=== PATIENT | male | born 1985 | race Caucasian/White ===

== ENCOUNTER 2017-06-24 07:37 | Emergency (ER) | payer SELFPAY ==
[2017-06-24 07:43] VITALS: BP 130/81
[2017-06-24] MEDS ORDERED: DEXAMETHASONE SOD PHOS INJ 10 MG/1 ML VIAL IM ONE (08:48)
--- NOTE | 2017-06-24 08:50 | ER Document Report ---
ED General - General Chief Complaint: Sore Throat Stated Complaint: SORE THROAT Time Seen by Provider: 06/24/17 08:22 Mode of Arrival: Ambulatory Information source: Patient Notes: 31-year-old male presents with complaint sore throat. Patient notes symptoms abdominal for 2 days believes he has strep. He denies any fevers or chills admits to body aches intermittent cough. Patient is a smoker and knows productivity to the cough. Patient admits to pain with swallowing but no difficulty breathing TRAVEL OUTSIDE OF THE [place] IN LAST 30 DAYS: No - HPI Onset: Other - 2 day duration Onset/Duration: Persistent, Worse Quality of pain: Achy Severity: Mild Pain Level: 1 Associated symptoms: Body/muscle aches, Productive cough, Sore throat Exacerbated by: Food Relieved by: Denies Similar symptoms previously: Yes Recently seen / treated by doctor: No - Related Data Allergies/Adverse Reactions: No Known Allergies Allergy (Verified 01/25/14 11:30) Past Medical History - Social History Smoking Status: Current Every Day Smoker Cigarette use (# per day): Yes Chew tobacco use (# tins/day): No Smoking Education Provided: No Frequency of alcohol use: None Drug Abuse: None Family History: Reviewed & Not Pertinent Patient has suicidal ideation: No Patient has homicidal ideation: No Renal/ Medical History: Denies: Hx Peritoneal Dialysis - Immunizations Hx Diphtheria, Pertussis, Tetanus Vaccination: Yes Review of Systems - Review of Systems Notes: REVIEW OF SYSTEMS: CONSTITUTIONAL : Denies fever, chills, or sweats. Denies recent illness. EENT: Admits to sore throat CARDIOVASCULAR: Denies chest pain. Denies palpitations or racing or irregular heart beat. Denies ankle edema. RESPIRATORY: Admits to cough GASTROINTESTINAL: Denies abdominal pain or distention. Denies nausea, vomiting , or diarrhea. Denies blood in vomitus, stools, or per rectum. Denies black, tarry stools. Denies constipation. GENITOURINARY: Denies difficulty urinating, painful urination, burning, frequency, blood in urine, or discharge. MUSCULOSKELETAL: Admits to body aches SKIN: Denies rash, lesions or sores. HEMATOLOGIC : Denies easy bruising or bleeding. LYMPHATIC: Denies swollen, enlarged glands. NEUROLOGICAL: Denies confusion or altered mental status. Denies passing out or loss of consciousness. Denies dizziness or lightheadedness. Denies headache. Denies weakness or paralysis or loss of use of either side. Denies problems with gait or speech. Denies sensory loss, numbness, or tingling. Denies seizures. PSYCHIATRIC: Denies anxiety or stress. Denies depression, suicidal ideation, or homicidal ideation. ALL OTHER SYSTEMS REVIEWED AND NEGATIVE. Dictation was performed using [employer] 2000 voice recognition software PHYSICAL EXAMINATION: GENERAL: Well-appearing, well-nourished and in no acute distress. HEAD: Atraumatic, normocephalic. EYES: Pupils equal round and reactive to light, extraocular movements intact, sclera anicteric, conjunctiva are normal. ENT: Uvula midline airway patent bilateral tonsillar enlargement mild exudate on the right NECK: Normal range of motion, supple without lymphadenopathy LUNGS: Breath sounds clear to auscultation bilaterally and equal. No wheezes rales or rhonchi. HEART: Regular rate and rhythm without murmurs ABDOMEN: Soft, nontender, nondistended abdomen. No guarding, no rebound. No masses appreciated. Musculoskeletal: Normal range of motion, no pitting or edema. No cyanosis. NEUROLOGICAL: Cranial nerves grossly intact. Normal speech, normal gait. Normal sensory, motor exams PSYCH: Normal mood, normal affect. SKIN: Warm, Dry, normal turgor, no rashes or lesions noted. Physical Exam - Vital signs Vitals: Temp Pulse Resp BP Pulse Ox 98.3 F 100 20 130/81 H 100 06/24/17 07:42 06/24/17 07:42 06/24/17 07:42 06/24/17 07:42 06/24/17 07:42 Course - Re-evaluation Re-evalutation: 06/24/17 08:50 Patient has probable strep pharyngitis testing pending at this time, he has no signs of peritonsillar abscess 06/24/17 09:25 Patient is positive for strep will start on antibiotics and otherwise well- appearing no distress After performing a Medical Screening Examination, I estimate there is LOW risk for CENTRAL CORD SYNDROME, LUDWIGS ANGINA, PERITONSILLAR ABSCESS, RETROPHARYNGEAL ABSCESS, EPIDURAL MASS LESION, SEVERE SPINAL STENOSIS, ARTERIAL DISSECTION, MENINGITIS, or ACUTE CORONARY SYNDROME, thus I consider the discharge disposition reasonable. I have reevaluated this patient multiple times and no significant life threatening changes are noted. The patient and I have discussed the diagnosis and risks, and we agree with discharging home to follow-up on an outpatient basis with the understanding that symptoms and presentations can change. We also discussed returning to the Emergency Department immediately if new or worsening symptoms occur. We have discussed the symptoms which are most concerning (e.g., saddle anesthesia, urinary or bowel incontinence or retention, changing or worsening pain) that necessitate immediate return. - Vital Signs Vital signs: Temp Pulse Resp BP Pulse Ox 98.3 F 100 20 130/81 H 100 06/24/17 07:42 06/24/17 07:42 06/24/17 07:42 06/24/17 07:42 06/24/17 07:42 Discharge - Discharge Clinical Impression: Strep pharyngitis, Body aches Condition: Stable Disposition: HOME, SELF-CARE Instructions: Sore Throat ([facility]), Strep Throat ([facility]) Additional Instructions: Follow up with your physician tomorrow for further care or return to the ED IMMEDIATELY if symptoms worsen or new concerns occur. If you cannot afford to follow up with your primary care physician a list of low cost clinics have been provided at the end of your discharge papers as well. Prescriptions: Penicillin V Potassium [Penicillin Vk 500 mg Tablet] 500 mg PO Q6 #40 tablet
[2017-06-24 09:12] LABS: A TYPE INFLUENZA AG NEGATIVE (NEGATIVE); B INFLUENZA AG NEGATIVE (NEGATIVE)
== END 2017-06-24 09:46 | disposition home or self-care (01) ==
LOC: ER 07:37
DX: J02.0 Streptococcal pharyngitis (principal); M79.1 Myalgia; R05 Cough; F17.210 Nicotine dependence, cigarettes, uncomplicated
CPT/HCPCS: 99283; 96372; 87880; 87804; J1100

== ENCOUNTER 2017-10-27 00:47 | Emergency (ER) | payer SELFPAY ==
[2017-10-27] MEDS ORDERED: NORMAL SALINE 1000 ML 1,000 ML IV ONE (00:55)
[2017-10-27] MEDS ORDERED: KETOROLAC TROMETHAMINE INJ/PF 30 MG/1 ML SDV IV ONE (00:55)
[2017-10-27] MEDS ORDERED: ONDANSETRON HCL INJ/PF 4 MG/2 ML SDV IV ONE (00:55)
--- NOTE | 2017-10-27 00:57 | ER Document Report ---
ED Medical Screen (RME) - General Chief Complaint: Flank Pain Stated Complaint: ABDOMINAL PAIN Time Seen by Provider: 10/27/17 00:55 Mode of Arrival: Ambulatory Information source: Patient Notes: Patient is a 31-year-old male who presents to the ER today for 2 days of intermittent left flank pain radiating to the left lower quadrant of the abdomen with associated nausea and vomiting. Patient denies any dysuria, hematuria, history of kidney stones. He denies any injury. He states that at this time the pain in the left flank is the worst that it has been and it feels like "somebody a stabbing me with something sharp." TRAVEL OUTSIDE OF THE [place] IN LAST 30 DAYS: No - Related Data Allergies/Adverse Reactions: No Known Allergies Allergy (Verified 01/25/14 11:30) Past Medical History - General Information source: Patient Renal/ Medical History: Denies: Hx Peritoneal Dialysis - Immunizations Hx Diphtheria, Pertussis, Tetanus Vaccination: Yes Review of Systems - Review of Systems Genitourinary: See HPI Physical Exam - Vital signs Vitals: Temp Pulse Resp BP Pulse Ox 97.9 F 88 18 133/77 H 100 10/27/17 00:52 10/27/17 00:52 10/27/17 00:52 10/27/17 00:52 10/27/17 00:52 - Notes Notes: PHYSICAL EXAMINATION: GENERAL: Pacing, groaning in pain, holding left flank, and mild acute distress ABDOMEN: Soft, no tenderness. No guarding, no rebound GI/: Left CVA tenderness Course - Vital Signs Vital signs: Temp Pulse Resp BP Pulse Ox 97.9 F 88 18 133/77 H 100 10/27/17 00:52 10/27/17 00:52 10/27/17 00:52 10/27/17 00:52 10/27/17 00:52
[2017-10-27] MEDS ORDERED: HYDROMORPHONE HCL INJ/PF 2 MG/ML AMPULE IV ONE ×2 (02:11→03:28)
[2017-10-27 02:17] LABS: ABSOLUTE BASOPHILS # (AUTO) 0.1 10^3/uL (0.0-0.2); ABSOLUTE LYMPHOCYTES (AUTO) 1.9 10^3/uL (0.5-4.7); ABSOLUTE MONOCYTES (AUTO) 1.3 10^3/uL (0.1-1.4); ABSOLUTE NEUT (AUTO) 12.8 10^3/uL (1.7-8.2); BASOPHILS % (AUTO) 0.7 % (0-2); EOSINOPHILS % (AUTO) 0.3 % (0-6); HEMATOCRIT 45.1 % (37.9-51.0); HEMOGLOBIN 15.1 g/dL (13.5-17.0); LYMPHOCYTES % (AUTO) 11.5 % (13-45); MEAN CORPUSCULAR HEMOGLOBIN 28.2 pg (27.0-33.4); MEAN CORPUSCULAR HGB CONC 33.5 g/dL (32.0-36.0); MEAN CORPUSCULAR VOLUME 84 fl (80-97); MONOCYTES % (AUTO) 8.1 % (3-13); PLATELET COUNT 331 10^3/uL (150-450); RED BLOOD COUNT 5.35 10^6/uL (4.35-5.55); RED CELL DISTRIBUTION WIDTH 13.5 % (11.5-14.0); SEGMENTED NEUTROPHILS % (AUTO) 79.4 % (42-78); TOTAL CELLS COUNTED % (AUTO) 100 %; WHITE BLOOD COUNT 16.1 10^3/uL (4.0-10.5)
[2017-10-27 02:29] LABS: ALANINE AMINOTRANSFERASE 33 U/L (21-72); ALBUMIN 4.4 g/dL (3.5-5.0); ALKALINE PHOSPHATASE 87 U/L (38-126); ANION GAP 11 (5-19); ASPARTATE AMINO TRANSFERASE 30 U/L (17-59); BILIRUBIN,DIRECT 0.3 mg/dL (0.0-0.4); BILIRUBIN,TOTAL 0.7 mg/dL (0.2-1.3); BLOOD UREA NITROGEN 18 mg/dL (7-20); CALCIUM 9.6 mg/dL (8.4-10.2); CARBON DIOXIDE 28 mmol/L (22-30); CHLORIDE 103 mmol/L (98-107); GLUCOSE 119 mg/dL (75-110); LIPASE 32.6 U/L (23-300); POTASSIUM 3.9 mmol/L (3.6-5.0); SODIUM 141.8 mmol/L (137-145); TOTAL PROTEIN 7.5 g/dL (6.3-8.2)
[2017-10-27 02:39] LABS: APPEARANCE,URINE SLIGHTLY-CLOUDY; BILIRUBIN,URINE NEGATIVE (NEGATIVE); COLOR,URINE YELLOW; GLUCOSE, URINE NEGATIVE (NEGATIVE); KETONES,URINE NEGATIVE (NEGATIVE); LEUKOCYTE ESTERASE,URINE NEGATIVE (NEGATIVE); NITRITE,URINE NEGATIVE (NEGATIVE); PROTEIN,URINE NEGATIVE (NEGATIVE); URINE SPECIFIC GRAVITY 1.018; UROBILINOGEN,URINE NEGATIVE mg/dL (<2.0)
--- NOTE | 2017-10-27 03:10 | RADIOLOGY REPORT (SQ) ---
EXAM DESCRIPTION: CT ABDOMEN AND PELVIS WITHOUT CONTRAST CLINICAL HISTORY: left flank pain COMPARISON: None Available. TECHNIQUE: CT of the abdomen and pelvis without IV contrast. Evaluation of the solid organs and vasculature is suboptimal due to lack of IV contrast. DLP: 409.21 mGy-cm FINDINGS: Lung Bases: The visualized lung bases are clear. Bones: No destructive bone lesions identified. Abdomen: Liver: The liver has normal size and density. Gallbladder: No calcified gallstones. Spleen, Pancreas, and Adrenal Glands: The spleen, pancreas, and adrenal glands are unremarkable. Kidneys: There is a 0.2 cm obstructing calculus at the left UVJ producing mild left hydroureter and hydronephrosis. No right-sided hydronephrosis. Vasculature: The aorta and IVC have normal caliber and position. Stomach: The stomach and duodenum have normal course. Other: No free intraperitoneal air. No free fluid or lymphadenopathy. Pelvis: Bladder: Urinary bladder is unremarkable. Bowel: No dilated loops of large or small bowel. Appendix: Normal appendix. Pelvis: Prostate is not enlarged. IMPRESSION: 1. There is a 0.2 cm obstructing calculus at the left UVJ producing mild left hydroureter and hydronephrosis. This exam was performed according to our departmental dose-optimization program, which includes automated exposure control, adjustment of the mA and/or kV according to patient size and/or use of iterative reconstruction technique.
--- NOTE | 2017-10-27 03:16 | ER Document Report ---
ED General - General Chief Complaint: Flank Pain Stated Complaint: ABDOMINAL PAIN Time Seen by Provider: 10/27/17 00:55 Mode of Arrival: Ambulatory Information source: Patient Notes: Patient is a 31-year-old male who presents to the ER today for 2 days of intermittent left flank pain radiating to the left lower quadrant of the abdomen with associated nausea and vomiting. Patient denies any dysuria, hematuria, history of kidney stones. He denies any injury. He states that at this time the pain in the left flank is the worst that it has been and it feels like "somebody a stabbing me with something sharp." TRAVEL OUTSIDE OF THE [place] IN LAST 30 DAYS: No - Related Data Allergies/Adverse Reactions: No Known Allergies Allergy (Verified 10/27/17 02:03) Past Medical History - General Information source: Patient - Social History Smoking Status: Current Every Day Smoker Chew tobacco use (# tins/day): No Frequency of alcohol use: None Drug Abuse: None Family History: Reviewed & Not Pertinent Patient has suicidal ideation: No Patient has homicidal ideation: No Renal/ Medical History: Denies: Hx Peritoneal Dialysis - Immunizations Hx Diphtheria, Pertussis, Tetanus Vaccination: Yes Review of Systems - Review of Systems Constitutional: No symptoms reported EENT: No symptoms reported Cardiovascular: No symptoms reported Respiratory: No symptoms reported Gastrointestinal: See HPI Genitourinary: See HPI Male Genitourinary: No symptoms reported Musculoskeletal: No symptoms reported Skin: No symptoms reported Hematologic/Lymphatic: No symptoms reported Neurological/Psychological: No symptoms reported Physical Exam - Vital signs Vitals: Temp Pulse Resp BP Pulse Ox 97.9 F 88 18 133/77 H 100 10/27/17 00:52 10/27/17 00:52 10/27/17 00:52 10/27/17 00:52 10/27/17 00:52 - Notes Notes: PHYSICAL EXAMINATION: GENERAL: in pain, holding left side, in mild acute distress. HEAD: Atraumatic, normocephalic. EYES: Pupils equal round and reactive to light, extraocular movements intact, sclera anicteric, conjunctiva are normal. NECK: Normal range of motion, supple without lymphadenopathy LUNGS: CTAB and equal. No wheezes rales or rhonchi. HEART: Regular rate and rhythm without murmurs ABDOMEN: Soft, no tenderness. No guarding, no rebound BACK: no vertebral tenderness, normal ROM GI/: left CVA tenderness EXTREMITIES: Normal range of motion, no pitting edema. No cyanosis. NEUROLOGICAL: Cranial nerves grossly intact. Normal sensory/motor exams. PSYCH: Agitated SKIN: Warm, Dry, normal turgor, no rashes or lesions noted Course - Re-evaluation Re-evalutation: 10/27/17 06:40 Pt has a .2cm stone in the left UVJ, mild hydronephrosis and hydroureter. pt feels much better after flomax, toradol, iv fluids, zofran. pt given information for urologist in [facility], sent home with pain medication, flomax, nausea medication, advised to drink plenty of water. 10/27/17 22:43 - Vital Signs Vital signs: Temp Pulse Resp BP Pulse Ox 98.2 F 92 16 147/87 H 97 10/27/17 04:25 10/27/17 04:25 10/27/17 04:25 10/27/17 04:25 10/27/17 04:25 - Laboratory Result Diagrams: 10/27/17 02:05 10/27/17 02:05 Laboratory results interpreted by me: 10/27/17 10/27/17 10/27/17 02:05 02:05 02:15 WBC 16.1 H Seg Neutrophils % 79.4 H Lymphocytes % 11.5 L Absolute Neutrophils 12.8 H Glucose 119 H Urine Blood LARGE H Discharge - Discharge Clinical Impression: Left ureteral stone Condition: Stable Disposition: HOME, SELF-CARE Additional Instructions: Return immediately for any new or worsening symptoms. Follow up with urologist, call tomorrow to make followup appointment. Prescriptions: Ondansetron [Zofran Odt 4 mg Tablet] 1 - 2 tab PO Q4H PRN #30 tab.rapdis PRN Reason: For Nausea/Vomiting Oxycodone HCl/Acetaminophen [Percocet 5-325 mg Tablet] 1 - 2 tab PO Q4H PRN #15 tablet PRN Reason: Tamsulosin HCl [Flomax 0.4 mg Cap.sr] 0.4 mg PO DAILY #7 cap.sr.24h Forms: Return to Work Referrals: SHOLA BOLAÑOS DO [NICK NUÑEZ] - Follow up as needed
[2017-10-27] MEDS ORDERED: HYDROCODONE/ACETAMINOPHEN 5-325 MG (6 TAB/ER DISP) PO PRN (03:28)
[2017-10-27] MEDS ORDERED: ONDANSETRON ODT 4 MG TAB (6 TAB/ER DISP) PO PRN (03:28)
[2017-10-27] MEDS ORDERED: TAMSULOSIN HCL 0.4 MG CAP.SR.24H PO ONE (03:28)
[2017-10-27 04:34] VITALS: BP 147/87
== END 2017-10-27 04:34 | disposition home or self-care (01) ==
LOC: ER 00:47
DX: N20.1 Calculus of ureter (principal); R10.32 Left lower quadrant pain; F17.200 Nicotine dependence, unspecified, uncomplicated
CPT/HCPCS: 96376; 99284; 96361; 96374; 96375; 36415; 83690; 85025; 80053; 81001; 76380; J1885; J1170; J2405; J7030

== ENCOUNTER 2018-12-21 00:09 | Emergency (ER) | payer SELFPAY ==
[2018-12-21] MEDS ORDERED: ONDANSETRON 4 MG TAB.RAPDIS PO ONE (01:40)
[2018-12-21] MEDS ORDERED: NORMAL SALINE 1000 ML 1,000 ML IV ONE ×3 (05:10→09:36)
[2018-12-21] MEDS ORDERED: FAMOTIDINE 20 MG TABLET PO ONE (05:11)
[2018-12-21] MEDS ORDERED: PROMETHAZINE HCL 25 MG TABLET PO ONE (05:11)
--- NOTE | 2018-12-21 05:12 | ER Document Report ---
ED GI/ - General TRAVEL OUTSIDE OF THE [place] IN LAST 30 DAYS: No <DUC WILLETT - Last Filed: 12/21/18 06:46> <MISAEL ANN - Last Filed: 12/21/18 13:11> - General Chief Complaint: Nausea/Vomiting/Diarrhea Stated Complaint: VOMITTING, DIARRHEA Time Seen by Provider: 12/21/18 01:39 Notes: Patient is a 32-year-old male that comes emergency department for chief complaint of nausea, vomiting, and diarrhea for the past 4 days. He states during the day he had about 5 loose stools, nonbloody. He denies fever today but states he felt like he had a fever yesterday. He denies recent antibiotics, raw food, recent travel, obvious sick contacts. He denies any daily medications, surgeries. He does have a history of kidney stones. He smokes, denies alcohol, denies recreational drugs. (DUC WILLETT) - Related Data Allergies/Adverse Reactions: No Known Allergies Allergy (Verified 10/27/17 02:03) Past Medical History - General Information source: Patient - Social History Smoking Status: Current Every Day Smoker Smoking Education Provided: Yes - <3 min Frequency of alcohol use: None Drug Abuse: None Lives with: Family Family History: Reviewed & Not Pertinent Renal/ Medical History: Reports: Hx Kidney Stones. Denies: Hx Peritoneal Dialysis Surgical Hx: Negative - Immunizations Hx Diphtheria, Pertussis, Tetanus Vaccination: Yes <DUC WILLETT - Last Filed: 12/21/18 06:46> Review of Systems - Review of Systems Constitutional: No symptoms reported EENT: No symptoms reported Cardiovascular: No symptoms reported Respiratory: No symptoms reported Gastrointestinal: See HPI Genitourinary: No symptoms reported Male Genitourinary: No symptoms reported Musculoskeletal: No symptoms reported Skin: No symptoms reported Hematologic/Lymphatic: No symptoms reported Neurological/Psychological: No symptoms reported <DUC WILLETT - Last Filed: 12/21/18 06:46> Physical Exam <DUC WILLETT - Last Filed: 12/21/18 06:46> - Vital signs Vitals: Temp Pulse Resp BP Pulse Ox 98.0 F 92 12 129/76 H 95 12/21/18 01:12 12/21/18 01:12 12/21/18 01:12 12/21/18 01:12 12/21/18 01:12 - Notes Notes: GENERAL: Sleeping but easily aroused, no distress noted HEAD: Normocephalic, atraumatic. EYES: Pupils equal, round, and reactive to light. Extraocular movements intact. ENT: Oral mucosa dry, tongue midline. Oropharynx unremarkable. Airway patent. LUNGS: Clear to auscultation bilaterally, no wheezes, rales, or rhonchi. No respiratory distress. HEART: Regular rate and rhythm. No murmur ABDOMEN: Mild generalized tenderness of the abdomen, slightly worse in the epigastric area, no rigidity or guarding. Bowel sounds present in all quadrants. GENITOURINARY: Deferred EXTREMITIES: Moves all 4 extremities spontaneously. No edema, normal radial and dorsalis pedis pulses bilaterally. BACK: no cervical, thoracic, lumbar midline tenderness. No saddle anesthesia, normal distal neurovascular exam. NEUROLOGICAL: Alert and oriented x3. Normal speech. Cranial nerves II through XII grossly intact. PSYCH: Normal affect, normal mood. SKIN: Warm, dry, normal turgor. No rashes or lesions noted. (DUC WILLETT) Course <DUC WILLETT - Last Filed: 12/21/18 06:46> - Laboratory Result Diagrams: 12/21/18 09:47 12/21/18 09:47 <MISAEL ANN - Last Filed: 12/21/18 13:11> - Re-evaluation Re-evalutation: Patient is not tachycardic. He has mild generalized abdominal tenderness, slightly worse in the upper abdomen. No guarding. His mucous membranes are very dry. He was given Pepcid and Phenergan p.o., initiating IV fluids. Patient vomited Pepcid and Phenergan almost right away. Most likely in the rehydration first. Placed urine drug screen. (DUC WILLETT) 12/21/18 08:00 Bedside report received by Duc Willett PA-C. Patient is sleeping prone on the stretcher with IV fluids infusing. Patient is not vomiting at this time. We did update the family in regards to still needing blood work. 12/21/18 10:37 I did reevaluate the patient as he is requesting more nausea medicine. Patient states he has not vomited since receiving the Haldol which did seem to help but the nausea is still present. With the patient in the supine position and legs straight I reevaluated his abdomen. Abdomen is soft and generally tender throughout, + hyperactive bowel sounds. There is no specific point tenderness. Patient states it feels like there is a gnawing type feeling throughout his entire abdomen. Patient does have a rash below the umbilicus which he reports is from irritation from his belt buckle. Appearance is consistent with contact dermatitis. There is no ecchymosis, palpable masses or guarding. Patient denies recent antibiotic use, sick contacts, out of country travel or any change in his daily activities. Patient does report constipation about 2 weeks ago in which he did take an [id number] MiraLAX with relief of symptoms. Patient denies medical or surgical history. 12/21/18 12:48 Patient's urinalysis is unremarkable although did show small amount of ketones after receiving 3 L of fluid. I did inform the patient that our C. difficile test in the lab is down for a few hours and we will not get this result until later today. I did inform him that I would call with these results if they required antibiotics. Patient reports feeling a little better and would like to attempt to drink some fluids. Honey gonzales provided. Strict return precautions given to patient and family. Patient is nontoxic-appearing and is in no distress at this time. Will discharge if patient is able to tolerate liquids. 12/21/18 13:11 Patient is tolerating p.o. without vomiting. Will discharge home with strict return precautions. (MISAEL ANN) - Vital Signs Vital signs: Temp Pulse Resp BP Pulse Ox 98.9 F 95 16 127/84 H 98 12/21/18 11:54 12/21/18 11:54 12/21/18 07:48 12/21/18 11:54 12/21/18 11:54 - Laboratory Laboratory results interpreted by me: 12/21/18 12/21/18 12/21/18 09:47 09:47 12:10 WBC 13.9 H Seg Neutrophils % 86.3 H Lymphocytes % 6.5 L Absolute Neutrophils 12.0 H Sodium 135.4 L Glucose 114 H Urine Ketones 20 H Urine Ascorbic Acid 40 H Discharge <DUC WILLETT - Last Filed: 12/21/18 06:46> <MISAEL ANN - Last Filed: 12/21/18 13:11> - Discharge Clinical Impression: Nausea vomiting and diarrhea, Abdominal cramping Contact dermatitis Qualifiers: Contact dermatitis type: irritant Contact dermatitis trigger: metal Qualified Code(s): L24.81 - Irritant contact dermatitis due to metals Condition: Stable Disposition: HOME, SELF-CARE Instructions: Antinausea Medication ([facility]), Diarrhea, Nonspecific ([facility]), Intravenous (IV) Fluids ([facility]), Reglan ([facility]), Viral Syndrome ([facility]), Vomiting ([facility]) Additional Instructions: Today you were seen in the emergency department for abdominal pain and vomiting with diarrhea. This has been ongoing since Wednesday. Your urine did show you were dehydrated as the results were obtained after receiving 3 L of fluid. You were adequately rehydrated and have tolerated liquids by mouth since. You have stated that your abdominal pain is slightly improved. Please return to the emergency department if your pain becomes more severe and steady and concentrated to one area, persistent vomiting, blood in the vomit or bowel movements, fever, if your abdomen becomes more distended or swollen or if you have any other concerning signs or symptoms. Your C. difficile stool cultures and results are pending, I will call you with the results if they are positive and require antibiotics. Diarrhea Diarrhea means frequent, watery stools. There are many causes. Any problem that keeps the intestinal tract from absorbing water from the stool can lead to diarrhea. A sudden new diarrhea problem is usually caused by a virus, food sen sitivity, toxic bacteria, or drugs. In this case, we expect the problem to go away soon. Testing is done only if you seem seriously ill from the diarrhea. If you have chronic diarrhea, or diarrhea that keeps coming back, we need to find out why. Chronic diarrhea can be due to inflammation of the bowels such as Crohn's disease or ulcerative colitis, food sensitivity such as intolerance to lactose or wheat protein, irritable bowel syndrome, and other problems. If your diarrhea is a significant problem but it's not clear why you have it, we'll refer you to a specialist for further testing. During an episode of diarrhea, drink small amounts (two to six ounces) of clear liquids (soft drinks, sport drinks, herb teas, broth, etc). Take fluids frequently to prevent dehydration. It's usually not a problem to take mild anti- diarrhea medication such as Kaopectate or Pepto-Bismol. As the diarrhea eases, advance to small amounts of bland food (mashed potato, toast) for 24 hours. Call the physician if blood appears in your vomit or stool, if vomiting lasts longer than 24 hours, if the abdominal pain worsens or becomes localized to one area, if you develop high fever, or if you become lightheaded and weak. Abdominal Pain There are many causes of abdominal pain. Pain can mean a serious problem requiring surgery (such as appendicitis). It can also be an innocent problem that goes away on its own (such as a viral infection). Often, time must pass to determine the cause of pain. The physician does not feel that hospitalization is necessary, at present. Things may change within the next 24 hours. Call the doctor or come back for re-examination if any problems occur, such as: (1) Pain that becomes more severe, steady, or becomes concentrated in one specific area. Also, pain that is more severe with movement or coughing. (2) Vomiting that persists or becomes more frequent. (3) Blood in the vomitus, urine, or bowel movements. Blood in the stool may have a tarry or black appearance. (4) Shaking chills or fever greater than 100 degrees F. (5) The abdomen becomes more distended or swollen. (6) Bowel movements cease. (7) Failure to improve as expected. Vomiting Vomiting (or nausea without vomiting) can be caused by many other different problems. It can mean that something's wrong with the stomach, such as ulcers or inflammation or the intestinal tract, such as appendicitis. But it can also be a symptom of a problem that has nothing to do with the stomach or intestines. Vomiting is common with severe headaches, earaches, tonsillitis, and kidney i nfections, etc. We see it with pneumonia or heart attacks. Drugs can cause nausea and vomiting. Many abdominal problems cause vomiting; for example, gallstones, kidney stones, pancreatitis, and intestinal obstruction (blocked bowels). In most cases, curing the vomiting depends on fixing the problem that caused it. For temporary relief, we may use an anti-nausea medicine. For home use, we can prescribe suppositories, chewable pills, pills that dissolve in the mouth, or liquid anti-nausea drugs. If the vomiting seems to be caused by a problem in the stomach, acid-suppressing drugs may be prescribed as well. It's important to avoid dehydration. Sip small amounts of clear liquids (soft drinks, tea, broth, etc) . Try to take fluids frequently even if you are vomiting to prevent dehydration. Take increasing amounts of fluid and when liquids are being consumed successfully, advance to small amounts of bland food (toast, soups, mashed potatoes, etc.) until you are able to resume a regular diet. Avoid aspirin, tobacco, and alcohol. If the vomiting worsens, if the problem that's making you vomit worsens, or if there's evidence of bleeding in the stomach (such as black, tarry stool, or bloody or black vomit), you should return immediately. Also, return if abdominal pain worsens or becomes localized to one area or you develop high fever. Call your doctor if you aren't improved in 24 hours. Prescriptions: Dicyclomine HCl [Bentyl 10 mg Capsule] 1 cap PO TID #20 cap Famotidine [Pepcid 20 mg Tablet] 20 mg PO DAILY #12 tablet Ondansetron [Zofran Odt 4 mg Tablet] 1 tab PO Q4H PRN #15 tab.rapdis PRN Reason: For Nausea/Vomiting Promethazine HCl [Phenergan 25 mg Supp.rect] 1 supp GA Q6H #12 supp.rect
[2018-12-21] MEDS ORDERED: HALOPERIDOL LACTATE INJ 5 MG/1 ML VIAL IM ONE (07:07)
[2018-12-21 10:07] LABS: ABSOLUTE LYMPHOCYTES (AUTO) 0.9 10^3/uL (0.5-4.7); BASOPHILS % (AUTO) 0.2 % (0-2); HEMATOCRIT 43.6 % (37.9-51.0); HEMOGLOBIN 14.7 g/dL (13.5-17.0); LYMPHOCYTES % (AUTO) 6.5 % (13-45); MEAN CORPUSCULAR HEMOGLOBIN 28.3 pg (27.0-33.4); MEAN CORPUSCULAR HGB CONC 33.7 g/dL (32.0-36.0); MEAN CORPUSCULAR VOLUME 84 fl (80-97); RED CELL DISTRIBUTION WIDTH 12.5 % (11.5-14.0); SEGMENTED NEUTROPHILS % (AUTO) 86.3 % (42-78); TOTAL CELLS COUNTED % (AUTO) 100 %; WHITE BLOOD COUNT 13.9 10^3/uL (4.0-10.5)
[2018-12-21 10:24] LABS: ALANINE AMINOTRANSFERASE 32 U/L (21-72); ALBUMIN 3.7 g/dL (3.5-5.0); ALKALINE PHOSPHATASE 75 U/L (38-126); ANION GAP 11 (5-19); ASPARTATE AMINO TRANSFERASE 33 U/L (17-59); BILIRUBIN,DIRECT 0.2 mg/dL (0.0-0.4); BILIRUBIN,TOTAL 0.8 mg/dL (0.2-1.3); BLOOD UREA NITROGEN 11 mg/dL (7-20); CALCIUM 8.7 mg/dL (8.4-10.2); CARBON DIOXIDE 25 mmol/L (22-30); CHLORIDE 99 mmol/L (98-107); GLUCOSE 114 mg/dL (75-110); POTASSIUM 4.8 mmol/L (3.6-5.0); TOTAL PROTEIN 6.6 g/dL (6.3-8.2)
[2018-12-21] MEDS ORDERED: DICYCLOMINE HCL INJ 20 MG/2 ML AMPULE IM ONE (10:37)
[2018-12-21] MEDS ORDERED: METOCLOPRAMIDE HCL INJ/PF 10 MG/2 ML SDV IV ONE (10:37)
[2018-12-21 10:43] LABS: PLATELET COUNT 252 10^3/uL (150-450)
[2018-12-21 12:35] LABS: APPEARANCE,URINE CLEAR; BILIRUBIN,URINE NEGATIVE (NEGATIVE); COLOR,URINE YELLOW; GLUCOSE, URINE NEGATIVE (NEGATIVE); KETONES,URINE 20 mg/dL (NEGATIVE); LEUKOCYTE ESTERASE,URINE NEGATIVE (NEGATIVE); NITRITE,URINE NEGATIVE (NEGATIVE); PROTEIN,URINE NEGATIVE (NEGATIVE); URINE SPECIFIC GRAVITY 1.021; UROBILINOGEN,URINE NEGATIVE mg/dL (<2.0)
[2018-12-21 12:55] LABS: URINE AMPHETAMINES SCREEN NEGATIVE; URINE BARBITURATES SCREEN NEGATIVE; URINE BENZODIAZEPINES SCREEN NEGATIVE; URINE COCAINE SCREEN NEGATIVE; URINE MARIJUANA (THC) SCREEN NEGATIVE; URINE METHADONE SCREEN NEGATIVE; URINE PHENCYCLIDINE SCREEN NEGATIVE
[2018-12-21] MEDS ORDERED: ONDANSETRON ODT 4 MG TAB (6 TAB/ER DISP) PO PRN (12:56)
[2018-12-21 13:30] VITALS: BP 140/80
== END 2018-12-21 13:30 | disposition home or self-care (01) ==
LOC: ER 00:09
DX: R11.2 Nausea with vomiting, unspecified (principal); R19.7 Diarrhea, unspecified; R10.817 Generalized abdominal tenderness; L24.81 Irritant contact dermatitis due to metals; R10.9 Unspecified abdominal pain; F17.200 Nicotine dependence, unspecified, uncomplicated; Z87.442 Personal history of urinary calculi
CPT/HCPCS: 99283; 96372; 96374; 36415; 87045; 89055; 87205; 83690; 85025; 87077; 80053; 81001; 80307; 87493; 96361; J0500; S0119; J1630; J2765; J7030